=== PATIENT | male | born 1970 | race African-American/Black ===

== ENCOUNTER 2025-02-06 01:11 | Emergency (ER) | payer MEDICAID ==
[~2025-02-06] VITALS: Ht 180.3 cm; Wt 77.1 kg
[2025-02-06] MEDS ORDERED: ONDANSETRON ODT 4 MG TAB.RAPDIS ONE (01:33)
[2025-02-06] MEDS: HYDROMORPHONE 1 MG/1 ML DISP.SYRIN IM ONE (01:34)
[2025-02-06] MEDS ORDERED: HYDROMORPHONE 1 MG/1 ML DISP.SYRIN ONE (01:34)
[2025-02-06] MEDS: ONDANSETRON ODT 4 MG TAB.RAPDIS SL ONE (01:34)
[2025-02-06 01:42] LABS: *BILIRUBIN,URIN NEGATIVE (NEGATIVE); *CLARITY,URINE CLEAR (CLEAR); *COLOR,URINE YELLOW (YELLOW); *KETONES,URINE NEGATIVE (NEGATIVE); *PROTEIN,URINE NEGATIVE (NEGATIVE); *UROBILINOGEN,URINE 0.2 E.U./dl (NORMAL); LEUKOCYTE ESTERASE ,URINE NEGATIVE (NEGATIVE); NITRITE, URINE NEGATIVE (NEGATIVE); UGLUCOSE NEGATIVE (NEGATIVE)
[2025-02-06 01:46] LABS: *BLOOD, URINE TRACE (NEGATIVE)
[2025-02-06] MEDS ORDERED: HYDR-3980 PO (03:09)
[2025-02-06 03:47] VITALS: BP 115/85; TEMP 98; O2SAT 98
== END 2025-02-06 03:48 | disposition home or self-care (01) ==
LOC: ER 01:15
DX: N50.812 Left testicular pain (principal); J45.909 Unspecified asthma, uncomplicated; F17.210 Nicotine dependence, cigarettes, uncomplicated
CPT/HCPCS: 99285; 99406; 81001; 76870; 96372; 87491; 87591; J1171; A4606; A4663; Q0162